=== PATIENT | female | born 1935 | race Caucasian/White ===

== ENCOUNTER → 2017-10-03 | Outpatient (CLI) | payer MEDICARE ==
[~2017-10-03] MED LIST: AEC81 PO; BIMA2.5D4 OD; CHOL200074 PO; FISH1CAP49 PO; FURO40TA5 PO; GARL1CAP7 PO; GLIM4TAB3 PO; GLUC-172 PO; INSU3INS3 SQ; LEVO88TA7 PO; LOSA50TA37 PO; METO-391 PO; NIAC500C3 PO; OMEP20CA10 PO; POTA10CA44 PO; RED600TA PO; TIMO5DRO35 OD; WARF2.5T85 PO
== END | disposition home or self-care (01) ==
LOC: SHCH 13:34
PROVIDERS: ATTEND Internal Medicine Cardiovascular Disease
DX: I34.0 Nonrheumatic mitral (valve) insufficiency (principal)
CPT/HCPCS: 93306

== ENCOUNTER → 2017-10-05 | Outpatient (CLI) | payer MEDICARE ==
[~2017-10-05] MED LIST changes: +REGADENOSON 0.4 MG/5 ML PF SYG IVP SCH
== END | disposition home or self-care (01) ==
LOC: SHCH 17:02
PROVIDERS: ATTEND Internal Medicine Cardiovascular Disease
DX: I25.10 Atherosclerotic heart disease of native coronary artery without angina pectoris (principal)
CPT/HCPCS: 78452; 93017; 96374; A9500 ×2; J2785

== ENCOUNTER → 2018-04-04 | Outpatient (CLI) | payer MEDICARE ==
[~2018-04-04] MED LIST changes: -REGADENOSON 0.4 MG/5 ML PF SYG IVP SCH
== END | disposition home or self-care (01) ==
LOC: RAH 12:42
PROVIDERS: ATTEND Family Medicine
DX: I73.9 Peripheral vascular disease, unspecified (principal)
CPT/HCPCS: 93922

== ENCOUNTER → 2018-08-06 | Outpatient (CLI) | payer MEDICARE ==
[~2018-08-06] MED LIST changes: +LOSA50TA25 PO; -LOSA50TA37 PO
[2018-08-06 09:42] LABS: EOSINOPHILS % (AUTO) 2.6 % (0.0-8.0); HEMATOCRIT 44.6 % (36-48); LYMPHOCYTES % (AUTO) 24.4 % (21.0-51.0); MEAN CORPUSCULAR HEMOGLOBIN 28.2 pg (27.0-33.0); MEAN CORPUSCULAR HGB CONC 32.3 g/dL (32.0-36.0); MEAN CORPUSCULAR VOLUME 87.2 fL (79-99); MONOCYTES % (AUTO) 10.2 % (3.0-13.0); NEUTROPHILS % (AUTO) 61.8 % (40.0-77.0); PLATELET COUNT (AUTO) 189 K/uL (130-400); RED BLOOD CELL COUNT(AUTO) 5.11 MIL/uL (4.00-5.50); RED CELL DISTRIBUTION WIDTH 15.1 % (11.0-15.5); WHITE BLOOD COUNT (AUTO) 7.3 K/uL (4.8-10.8)
[2018-08-06 09:48] LABS: CREATININE 1.5 mg/dL (0.5-1.5); POTASSIUM 5.8 mmol/L (3.5-5.1)
== END | disposition home or self-care (01) ==
LOC: LAB 08:38
PROVIDERS: ATTEND Urology
DX: N13.30 Unspecified hydronephrosis (principal)
CPT/HCPCS: 36415; 80048; 85025

== ENCOUNTER → 2019-04-21 | Outpatient (CLI) | payer MEDICARE ==
[~2019-04-21] MED LIST changes: -LOSA50TA25 PO; +LOSA50TA64 PO; +OMEP-50 PO; -OMEP20CA10 PO
== END | disposition home or self-care (01) ==
LOC: SHCH 11:15
PROVIDERS: ATTEND Internal Medicine Cardiovascular Disease
DX: I65.23 Occlusion and stenosis of bilateral carotid arteries (principal); I11.9 Hypertensive heart disease without heart failure; I34.0 Nonrheumatic mitral (valve) insufficiency; I25.810 Atherosclerosis of coronary artery bypass graft(s) without angina pectoris
CPT/HCPCS: 93306; 93880

== ENCOUNTER 2019-08-01 22:06 | Inpatient (IN) | payer MEDICARE ==
[~2019-08-01] VITALS: Ht 152.4 cm; Wt 78.5 kg
[~2019-08-01 22:06] MED LIST changes: -GLIM4TAB3 PO; +GLIM4TAB5 PO
[2019-08-01 23:40] LABS: BASOPHILS % (AUTO) 0.1 % (0.0-5.0); EOSINOPHILS % (AUTO) 0.1 % (0.0-8.0); HEMATOCRIT 43.1 % (36-48); LYMPHOCYTES % (AUTO) 1.5 % (21.0-51.0); MEAN CORPUSCULAR HEMOGLOBIN 29.1 pg (27.0-33.0); MEAN CORPUSCULAR HGB CONC 33.6 g/dL (32.0-36.0); MEAN CORPUSCULAR VOLUME 86.8 fL (79-99); MONOCYTES % (AUTO) 0.6 % (3.0-13.0); NEUTROPHILS % (AUTO) 97.7 % (40.0-77.0); PLATELET COUNT (AUTO) 164 K/uL (130-400); RED BLOOD CELL COUNT(AUTO) 4.97 MIL/uL (4.00-5.50); RED CELL DISTRIBUTION WIDTH 14.4 % (11.0-15.5); WHITE BLOOD COUNT (AUTO) 8.5 K/uL (4.8-10.8)
[2019-08-01] MEDS ORDERED: ONDANSETRON HCL 4 MG/2 ML VIAL ONE (23:48)
[2019-08-01 23:55] LABS: CREATININE 1.6 mg/dL (0.5-1.5); POTASSIUM 3.2 mmol/L (3.5-5.1)
[2019-08-01 23:59] LABS: ALBUMIN 3.4 g/dL (3.5-5.0); BILIRUBIN,TOTAL 2.2 mg/dL (0.2-1.0); INR 0.99 (0.85-1.15); PARTIAL THROMBOPLASTIN TIME 24.1 SEC (26.3-35.5); PROTHROMBIN TIME 10.4 SEC (9.6-11.6); TOTAL PROTEIN, SERUM 7.2 g/dL (6.0-8.3)
[2019-08-02 00:02] LABS: B-TYPE NATRIURETIC PEPTIDE 246 pg/mL (0-100)
[2019-08-02] MEDS ORDERED: ZOSYN 3.375GM+NS 50ML 50 ML IV ONE (01:29)
[2019-08-02] MEDS ORDERED: SODIUM CHLORIDE 0.9% 1000ML 1,000 ML IV SCH (01:37)
[2019-08-02] MEDS ORDERED: ACETAMINOPHEN 325 MG TAB PO PRN ×2 (01:45)
[2019-08-02] MEDS ORDERED: LIDOCAINE HCL-MPF 1% 2ML VIAL IV PRN (01:45)
[2019-08-02] MEDS ORDERED: ONDANSETRON HCL 4 MG/2 ML VIAL IV PRN (01:45)
[2019-08-02] MEDS ORDERED: LACTULOSE 20 GM/30 ML UDCUP PO PRN (01:45)
[2019-08-02] MEDS ORDERED: POTASSIUM CHLORIDE 10% ELIXIR 20 MEQ/15 ML UDCUP PO PRN (01:45)
[2019-08-02] MEDS ORDERED: MORPHINE SULFATE 2 MG/ML 1ML SYG IV PRN (01:45)
[2019-08-02] MEDS ORDERED: POTASSIUM CHLORIDE 10MEQ/100ML 100 ML IV PRN (01:45)
[2019-08-02 01:56] LABS: APPEARANCE,URINE Clear (CLEAR); BILIRUBIN,URINE Small (NEGATIVE); COLOR,URINE Dark Yellow (YELLOW); GLUCOSE, URINE (UA) Negative (NEGATIVE); KETONES,URINE Negative (NEGATIVE); LEUKOCYTE ESTERASE ,URINE Negative (NEGATIVE); NITRATE,URINE Negative (NEGATIVE); OCCULT BLOOD,URINE Negative (NEGATIVE); PROTEIN,URINE Negative (NEGATIVE)
[2019-08-02] MEDS ORDERED: SODIUM CHLORIDE 0.9% 1000ML 1,000 ML IV ONE (02:07)
[2019-08-02] MEDS ORDERED: POTASSIUM BICARB/CIT AC 25 MEQ TABLET.EFF ONE (02:07)
[2019-08-02 04:37] LABS: BASOPHILS % (AUTO) 0.1 % (0.0-5.0); EOSINOPHILS % (AUTO) 0.1 % (0.0-8.0); HEMATOCRIT 40.9 % (36-48); LYMPHOCYTES % (AUTO) 1.1 % (21.0-51.0); MEAN CORPUSCULAR HEMOGLOBIN 29.2 pg (27.0-33.0); MEAN CORPUSCULAR HGB CONC 33.4 g/dL (32.0-36.0); MEAN CORPUSCULAR VOLUME 87.5 fL (79-99); MONOCYTES % (AUTO) 4.7 % (3.0-13.0); NUCLEATED RED BLOOD CELLS 0.2 % (0.0-0.19); PLATELET COUNT (AUTO) 150 K/uL (130-400); RED BLOOD CELL COUNT(AUTO) 4.67 MIL/uL (4.00-5.50); RED CELL DISTRIBUTION WIDTH 14.7 % (11.0-15.5); WHITE BLOOD COUNT (AUTO) 14.8 K/uL (4.8-10.8)
[2019-08-02 07:50] VITALS: BP 116/64
[2019-08-02] MEDS: INSULIN HUMULIN R 100 UNIT/ML 3ML SQ SCH ×4 (08:00→21:00)
[2019-08-02] MEDS: ENOXAPARIN SODIUM 30 MG/0.3 ML SQ SCH (09:00)
[2019-08-02] MEDS ORDERED: LORA0.5P MC (09:41)
[2019-08-02] MEDS ORDERED: APIX5TAB PO (09:41)
[2019-08-02] MEDS ORDERED: BIOT5000 PO (09:41)
[2019-08-02] MEDS ORDERED: VITA1CAP PO (09:41)
[2019-08-02] MEDS: FAMOTIDINE/PF 20 MG/2 ML VIAL IV SCH (10:01)
[2019-08-02 12:00] VITALS: BP 107/67
[2019-08-02 16:00] VITALS: BP 147/67
[2019-08-02] MEDS ORDERED: VANCOMYCIN PROTOCOL PER PHARMACY IV SCH (17:00)
--- NOTE | 2019-08-02 17:27 | NUR ---
INITIAL: Met w pt this afternoon to discuss dcp. Pt mentions that she lives alone. Prior to admission she was independent w ambulation and ADls. She was driving herself where needed. Per pt she owns a walker if needed. Pt mentions that she feels safe and comfortable to return home at [place]. She mentions that she does not have any family living here in the [place] and her son lives in [place]. CM to continue to follow and wait for Md recommendations. Addendum: 08/03/19 at 1729 by BELLA SÁNCHEZ Amended: Links added.
[2019-08-02] MEDS: VANCOMYCIN 1GM+NS 250ML 250 ML IV SCH (17:40)
[2019-08-02 19:15] VITALS: BP 88/60
--- NOTE | 2019-08-02 20:50 | NUR ---
Re: Dr. Ignacio Pierre in, updated by Daniel AVENDANO of the case, seen, examined & discuss with pt plan of care. Pt did inform MD that she would like to have a cardiac clearance as she has problem with CHF & cardiac arrhythmias. Pt claimed her cloth bale header is Dr. Mills, she does not have a surgeon. Order obtain for cardiology & surgical consult with Dr. Cardoso which MD had spoken earlier as noted. Per Dr. Pierre as clarified as I made him aware that we might not be able to obtain cardiac clearance before his plan ERCP tomorrow at 1200noon, stated he will still proceed, cardiac clearance is more for surgical reason. MD made aware pt glucose was 44 as reported, stated can give pt clear liquid diet then NPO post MN & to asked hospitalist regarding current IV fluid rate as pt with CHF.
--- NOTE | 2019-08-02 20:51 | NUR ---
Re: BS 44 Reported by RN STARSShai Domínguez pt's glucose 44, pt is awake, noted a little drowsy, agreed to have orange juice & apple sauce as pt cleared by Dr. Pierre to have clear liquid diet. We will re check glucose in 30 minutes.
[2019-08-02] MEDS: ZOSYN 3.375GM+NS 50ML 50 ML IV SCH (21:03)
[2019-08-02] MEDS: POTASSIUM CHLORIDE 20 MEQ ERTAB PO PRN ×2 (21:06→22:43)
[2019-08-02] MEDS: SODIUM CHLORIDE 0.9% 1000ML 1,000 ML IV SCH (21:07)
[2019-08-02] MEDS ORDERED: DEXTROSE 50%-WATER 50 ML DISP.SYRIN IV ONE (21:22)
[2019-08-02] MEDS ORDERED: DEXTROSE 50%-WATER 50 ML DISP.SYRIN IV PRN (21:30)
[2019-08-02] MEDS ORDERED: GLUCAGON 1MG KIT 1 MG ML IM PRN (21:30)
--- NOTE | 2019-08-02 21:30 | NUR ---
Glucose re checked 59 Dextrose 50% 1/2 amp given as re_checked glucose reported 59, pt declined to take anything by mouth at this time, claimed feels full. We will continue to monitor Glucose.
--- NOTE | 2019-08-02 21:31 | NUR ---
Re concern for CHF Page & called back HOUSING QUALITY STANDARD INSPECTOR Neno made aware of Dr. Pierre's orders & concern of IV running rate 100cc/hr, order received to decrease rate to NS at 50cc/hr, done.
--- NOTE | 2019-08-02 21:50 | NUR ---
Latest glucose reading 123
[2019-08-02 23:44] LABS: ALBUMIN 2.4 g/dL (3.5-5.0); BILIRUBIN,TOTAL 4.5 mg/dL (0.2-1.0); CREATININE 2.3 mg/dL (0.5-1.5); POTASSIUM 3.7 mmol/L (3.5-5.1); TOTAL PROTEIN, SERUM 5.6 g/dL (6.0-8.3)
[2019-08-03] VITALS (22 sets, daily range): BP systolic 91–189; BP diastolic 43–85
[2019-08-03] MEDS ORDERED: SODIUM CHLORIDE 0.9% 500ML 500 ML IV ONE ×2 (00:06→00:15)
--- NOTE | 2019-08-03 00:06 | NUR ---
Re: Lactic Acid 4.2 Page & called back CHARM FILTER OPERATOR HELPER Neno, made aware of Lactic Acid 4.2, obtain order to give NS 500cc bolus then repeat Lactic level in 4 hours.
[2019-08-03] MEDS: POTASSIUM CHLORIDE 20 MEQ ERTAB PO PRN (00:39)
[2019-08-03 04:32] LABS: BASOPHILS % (AUTO) 0.2 % (0.0-5.0); HEMATOCRIT 34.8 % (36-48); LYMPHOCYTES % (AUTO) 3.6 % (21.0-51.0); MEAN CORPUSCULAR VOLUME 87.9 fL (79-99); MONOCYTES % (AUTO) 3.1 % (3.0-13.0); NEUTROPHILS % (AUTO) 93.1 % (40.0-77.0); PLATELET COUNT (AUTO) 115 K/uL (130-400); RED BLOOD CELL COUNT(AUTO) 3.96 MIL/uL (4.00-5.50); WHITE BLOOD COUNT (AUTO) 23.9 K/uL (4.8-10.8)
[2019-08-03 04:50] LABS: CREATININE 2.5 mg/dL (0.5-1.5)
[2019-08-03 05:11] LABS: POTASSIUM 6.2 mmol/L (3.5-5.1)
[2019-08-03] MEDS ORDERED: SODIUM POLYSTYRENE SULFONATE 15 GM/60 ML ML RC SCH (05:30)
[2019-08-03] MEDS ORDERED: SODIUM POLYSTYRENE SULFONATE 15 GM/60 ML ML ONE (05:38)
[2019-08-03] MEDS: INSULIN HUMULIN R 100 UNIT/ML 3ML SQ SCH ×4 (05:59→20:31)
--- NOTE | 2019-08-03 06:00 | NUR ---
Re: Lactic Acid 3.3, K+ 6.2, WBC 23.9 Page & called back SECURITY MANAGEMENT SPECIALIST Roberto & made aware of above lab results, order obtain for Kayexalate 30gm per RC, explained to pt & done able to retain for 45minutes using a Robertson catheter to do the retention enema, tolerated well.
[2019-08-03] MEDS: ZOSYN 3.375GM+NS 50ML 50 ML IV SCH ×2 (08:12→20:30)
[2019-08-03] MEDS: FAMOTIDINE/PF 20 MG/2 ML VIAL IV SCH (08:12)
[2019-08-03] MEDS: ENOXAPARIN SODIUM 30 MG/0.3 ML SQ SCH (08:16)
--- NOTE | 2019-08-03 09:12 | NUR ---
DR. LUKE RECEIVED PHONE CALL FROM DR. CHANNING LEHMAN REGARDING CARDIAC CONSULT. ADVISED DR. LEHMAN PURPOSE WAS FOR CARDIAC CLEARANCE FOR PENDING ERCP PROCEDURE SCHEDULED FOR NOON TODAY. REPORTED PATIENT WITH HISTORY OF AFIB. DR. LEHMAN ADVISED HE WAS NOT GOING TO HOLD UP PROCEDURE IF ALL PATIENT HAD WAS AFIB THEN ABRUPTLY HUNG UP PHONE. NO FURTHER INFORMATION TO FORWARD.
[2019-08-03] MEDS ORDERED: IOHEXOL-350 50ML VIAL IV ONE (11:44)
[2019-08-03] MEDS ORDERED: INDOMETHACIN 50 MG SUPP.RECT RC SCH (13:00)
[2019-08-03] MEDS ORDERED: PROPOFOL 10 MG/ML 20ML VIAL IV ONE (14:12)
[2019-08-03] MEDS ORDERED: FENTANYL CITRATE PF 50 MCG/1 ML 2ML VIAL ONE ×2 (14:12→15:01)
[2019-08-03] MEDS ORDERED: EPHEDRINE SULFATE 50 MG/ML AMPULE ONE (14:12)
[2019-08-03] MEDS ORDERED: ROCURONIUM 10MG/1ML SYR 10 MG/ML ML ONE (14:14)
[2019-08-03] MEDS ORDERED: NEOSTIGMINE 5MG/5ML SYR IV ONE (14:16)
[2019-08-03] MEDS ORDERED: GLYCOPYRROLATE 1 MG/5 ML SYRINGE ONE (14:16)
[2019-08-03 15:51] LABS: ABG BASE EXCESS -9.1 mmol/L (-2.0-3.0); ABG OXYGEN SATURATION 93.3 % (95.0-99.0); ABG PCO2 50 mmHg (32-45)
[2019-08-03] MEDS ORDERED: METOPROLOL TARTRATE 1 MG/ML 5ML VIAL IV ONE (15:52)
[2019-08-03 15:53] LABS: BASOPHILS % (AUTO) 0.1 % (0.0-5.0); EOSINOPHILS % (AUTO) 0.8 % (0.0-8.0); HEMATOCRIT 38.7 % (36-48); MEAN CORPUSCULAR HGB CONC 32.5 g/dL (32.0-36.0); MEAN CORPUSCULAR VOLUME 89.3 fL (79-99); MONOCYTES % (AUTO) 3.7 % (3.0-13.0); NEUTROPHILS % (AUTO) 85.4 % (40.0-77.0); PLATELET COUNT (AUTO) 132 K/uL (130-400); RED BLOOD CELL COUNT(AUTO) 4.34 MIL/uL (4.00-5.50); RED CELL DISTRIBUTION WIDTH 15.7 % (11.0-15.5); WHITE BLOOD COUNT (AUTO) 23.3 K/uL (4.8-10.8)
[2019-08-03 16:16] LABS: POTASSIUM 4.4 mmol/L (3.5-5.1)
[2019-08-03] MEDS ORDERED: SUGAMMADEX SODIUM 200 MG/2 ML VIAL IV ONE (16:23)
[2019-08-03 16:46] LABS: ABG BASE EXCESS -6.2 mmol/L (-2.0-3.0); ABG HCO3 19.4 mmol/L (21.0-28.0); ABG OXYGEN SATURATION 99.9 % (95.0-99.0); ABG PCO2 39 mmHg (32-45)
[2019-08-03 16:56] LABS: ALBUMIN 2.9 g/dL (3.5-5.0); BILIRUBIN,TOTAL 5.1 mg/dL (0.2-1.0); CREATININE 2.2 mg/dL (0.5-1.5); TOTAL PROTEIN, SERUM 6.8 g/dL (6.0-8.3)
[2019-08-03 17:05] LABS: TROPONIN I 1.81 ng/mL (0.00-0.06)
--- NOTE | 2019-08-03 17:46 | NUR ---
CALLED ADILIA PIRES TO REPORT TI ELEVATED AT 1.81. ORDERED TO CONSULT MD [facility] sPOKE WITH TI AT THIS TIME, INFORMED ABOUT ABNORMAL EKG RESULTS, ELEVATED TI LEVEL OF 1.81 WELL PATIENT MEDS AND MEDICAL HISTORY. NO NEW ORDERED [facility] WILL FOLLOW-UP IN AM. Addendum: 08/03/19 at 1748 by NIGEL DAVIS RN RN Amended: Links added.
[2019-08-03] MEDS: BIOTIN 5000 MCG PO SCH (20:36)
[2019-08-03] MEDS: BIMATOPROST OD SCH (20:36)
[2019-08-03] MEDS: METOPROLOL SUCCINATE 50 MG PO SCH (20:37)
[2019-08-03] MEDS: APIXABAN 5 MG TABLET PO SCH (20:38)
[2019-08-03] MEDS: SODIUM CHLORIDE 0.9% 1000ML 1,000 ML IV SCH (22:47)
[2019-08-03 23:10] LABS: TROPONIN I 1.62 ng/mL (0.00-0.06)
--- NOTE | 2019-08-03 23:51 | NUR ---
critical troponin paged Neno Mejia. He is aware and waiting for troponin result at 08/04/19 @ 04:00 am
[2019-08-04] VITALS (15 sets, daily range): BP systolic 106–159; BP diastolic 57–89
[2019-08-04] MEDS: VANCOMYCIN 1GM+NS 250ML 250 ML IV SCH (04:31)
[2019-08-04 05:04] LABS: BASOPHILS % (AUTO) 0.1 % (0.0-5.0); EOSINOPHILS % (AUTO) 1.6 % (0.0-8.0); HEMATOCRIT 33.8 % (36-48); LYMPHOCYTES % (AUTO) 6.9 % (21.0-51.0); MEAN CORPUSCULAR HEMOGLOBIN 28.8 pg (27.0-33.0); MEAN CORPUSCULAR HGB CONC 32.4 g/dL (32.0-36.0); MEAN CORPUSCULAR VOLUME 88.9 fL (79-99); MONOCYTES % (AUTO) 2.8 % (3.0-13.0); NEUTROPHILS % (AUTO) 88.6 % (40.0-77.0); PLATELET COUNT (AUTO) 103 K/uL (130-400); RED BLOOD CELL COUNT(AUTO) 3.81 MIL/uL (4.00-5.50); RED CELL DISTRIBUTION WIDTH 15.2 % (11.0-15.5)
[2019-08-04 05:40] LABS: CREATININE 2.1 mg/dL (0.5-1.5); POTASSIUM 4.3 mmol/L (3.5-5.1)
[2019-08-04 05:44] LABS: TROPONIN I 1.24 ng/mL (0.00-0.06)
[2019-08-04] MEDS: INSULIN HUMULIN R 100 UNIT/ML 3ML SQ SCH ×4 (06:15→20:59)
[2019-08-04] MEDS: LEVOTHYROXINE 88 MCG TABLET PO SCH (06:34)
[2019-08-04] MEDS: SODIUM CHLORIDE 0.9% 1000ML 1,000 ML IV SCH (08:39)
[2019-08-04] MEDS: ENOXAPARIN SODIUM 30 MG/0.3 ML SQ SCH (09:00)
[2019-08-04] MEDS: METOPROLOL SUCCINATE 50 MG PO SCH ×2 (09:00→20:59)
[2019-08-04] MEDS: APIXABAN 5 MG TABLET PO SCH ×2 (09:00→21:00)
[2019-08-04] MEDS: CHOLECALCIFEROL 2000 UNIT PO SCH (09:00)
[2019-08-04] MEDS: FAMOTIDINE/PF 20 MG/2 ML VIAL IV SCH (10:43)
[2019-08-04] MEDS: VITAMIN B COMPLEX 1 CAPSULE PO SCH (10:43)
[2019-08-04] MEDS: LOSARTAN 50 MG TABLET PO SCH (10:44)
[2019-08-04] MEDS: ZOSYN 3.375GM+NS 50ML 50 ML IV SCH ×2 (10:44→21:41)
[2019-08-04] MEDS: FUROSEMIDE 40 MG TABLET PO SCH (10:44)
--- NOTE | 2019-08-04 17:51 | NUR ---
COSENT For laparoscopic cholecystectomy possibly open, stated she would like to talk to doctor first.
[2019-08-04] MEDS: BIMATOPROST OD SCH (20:58)
[2019-08-04] MEDS: BIOTIN 5000 MCG PO SCH (20:59)
[2019-08-05 03:00] VITALS: BP 157/93
[2019-08-05] MEDS: SODIUM CHLORIDE 0.9% 1000ML 1,000 ML IV SCH (04:04)
[2019-08-05 05:02] LABS: BASOPHILS % (AUTO) 0.3 % (0.0-5.0); HEMATOCRIT 34.8 % (36-48); LYMPHOCYTES % (AUTO) 10.1 % (21.0-51.0); MEAN CORPUSCULAR HEMOGLOBIN 29.1 pg (27.0-33.0); MEAN CORPUSCULAR HGB CONC 33.2 g/dL (32.0-36.0); MEAN CORPUSCULAR VOLUME 87.6 fL (79-99); MONOCYTES % (AUTO) 5.3 % (3.0-13.0); NEUTROPHILS % (AUTO) 83.3 % (40.0-77.0); PLATELET COUNT (AUTO) 109 K/uL (130-400); RED BLOOD CELL COUNT(AUTO) 3.97 MIL/uL (4.00-5.50); RED CELL DISTRIBUTION WIDTH 14.6 % (11.0-15.5); WHITE BLOOD COUNT (AUTO) 12.1 K/uL (4.8-10.8)
[2019-08-05 05:20] LABS: ALBUMIN 2.3 g/dL (3.5-5.0); BILIRUBIN,TOTAL 3.6 mg/dL (0.2-1.0); CREATININE 1.5 mg/dL (0.5-1.5); POTASSIUM 4.1 mmol/L (3.5-5.1); TOTAL PROTEIN, SERUM 5.9 g/dL (6.0-8.3)
[2019-08-05] MEDS: LEVOTHYROXINE 88 MCG TABLET PO SCH ×2 (05:53→11:27)
[2019-08-05] MEDS: INSULIN HUMULIN R 100 UNIT/ML 3ML SQ SCH ×3 (05:53→20:42)
[2019-08-05 07:00] VITALS: BP 142/95
--- NOTE | 2019-08-05 07:50 | NUR ---
SURGERY Anesthesiologist Dr. Eddy is here. Patient expressed concerns over undergoing surgery due to she states she "had a reaction to anesthesia" and was told "not to have anesthesia". Dr. Eddy was made aware of patient's comments and concerns and at this point she expresses she is not sure about the surgery and would like to talk to Cardiology first. Surgeon Dr. Ghosh was texted to call nurse back to update him. Also, cardiology needs to see patient for clearance. Pending for cardiology to round and for Dr. Ghosh to call back. Patient stable. In no distress but somewhat anxious about possible surgery. Morning VS WNLs. She was reassured nursing is working to inform her doctors of her concerns. ALso, she requested to wait for her son to arrive from [place] and it is a [address] and he hasn't left yet. States she is willing to go home and come back for surgery at a later time if necessary once all clearance is done.
[2019-08-05] MEDS: CHOLECALCIFEROL 2000 UNIT PO SCH (09:00)
[2019-08-05] MEDS: ENOXAPARIN SODIUM 30 MG/0.3 ML SQ SCH (09:00)
[2019-08-05] MEDS: METOPROLOL SUCCINATE 50 MG PO SCH ×2 (09:00→20:46)
[2019-08-05] MEDS: APIXABAN 5 MG TABLET PO SCH (09:00)
--- NOTE | 2019-08-05 10:01 | NUR ---
FOLLOW UP Dr. Ghosh called back and was updated. Stated whatever the patient wants is OK and that he will come talk to patient. Also, Hugh, Physician's Pipe Insulator Helper came to see patient. Laura for todayif patient proceeds with surgery. If not, F/U with them in office in 2 weeks. Patient has requested to postpone surgery for 2 weeks. Will inform attending.
[2019-08-05] MEDS: FAMOTIDINE/PF 20 MG/2 ML VIAL IV SCH (11:25)
[2019-08-05] MEDS: ZOSYN 3.375GM+NS 50ML 50 ML IV SCH ×2 (11:26→23:28)
[2019-08-05] MEDS: FUROSEMIDE 40 MG TABLET PO SCH (11:27)
[2019-08-05] MEDS: LOSARTAN 50 MG TABLET PO SCH (11:27)
[2019-08-05] MEDS: VITAMIN B COMPLEX 1 CAPSULE PO SCH (11:31)
[2019-08-05 12:00] VITALS: BP 161/78
[2019-08-05] MEDS ORDERED: REGADENOSON 0.4 MG/5 ML PF SYG IVP SCH (12:30)
[2019-08-05 17:35] VITALS: BP 147/93
[2019-08-05 19:00] VITALS: BP 145/63
[2019-08-05] MEDS: BIOTIN 5000 MCG PO SCH (20:46)
[2019-08-05] MEDS: VANCOMYCIN 1GM+NS 250ML 250 ML IV SCH (20:46)
[2019-08-05] MEDS: BIMATOPROST OD SCH (20:46)
[2019-08-05 23:00] VITALS: BP 120/71
[2019-08-06] VITALS (26 sets, daily range): BP systolic 123–162; BP diastolic 50–80
[2019-08-06 05:37] LABS: BASOPHILS % (AUTO) 0.5 % (0.0-5.0); EOSINOPHILS % (AUTO) 1.1 % (0.0-8.0); HEMATOCRIT 37.8 % (36-48); LYMPHOCYTES % (AUTO) 15.3 % (21.0-51.0); MEAN CORPUSCULAR HEMOGLOBIN 28.6 pg (27.0-33.0); MEAN CORPUSCULAR HGB CONC 32.7 g/dL (32.0-36.0); MEAN CORPUSCULAR VOLUME 87.5 fL (79-99); MONOCYTES % (AUTO) 8.9 % (3.0-13.0); NEUTROPHILS % (AUTO) 74.2 % (40.0-77.0); NUCLEATED RED BLOOD CELLS 0.1 % (0.0-0.19); PLATELET COUNT (AUTO) 131 K/uL (130-400); RED BLOOD CELL COUNT(AUTO) 4.32 MIL/uL (4.00-5.50); RED CELL DISTRIBUTION WIDTH 14.8 % (11.0-15.5); WHITE BLOOD COUNT (AUTO) 11.8 K/uL (4.8-10.8)
[2019-08-06 05:55] LABS: ALBUMIN 2.5 g/dL (3.5-5.0); BILIRUBIN,TOTAL 2.7 mg/dL (0.2-1.0); CREATININE 1.3 mg/dL (0.5-1.5); POTASSIUM 3.4 mmol/L (3.5-5.1); TOTAL PROTEIN, SERUM 6.3 g/dL (6.0-8.3)
--- NOTE | 2019-08-06 06:30 | NUR ---
CARDIOLOGY. ANAIS MENJIVAR PA IN TO SEE PATIENT. REVIEWED ECHO AND RADAMES SCAN, ADVISED PT SHE IS CONSIDERED MODERATE RISK FOR SURGERY. PT VERBALIZED UNDERSTANDING. ADVISED TO NOT EXCESSIVELY HYDRATE PT WITH IV FLUIDS POST-OP DUE TO INCREASED RISK FOR DEVELOPING CHF.
[2019-08-06] MEDS: INSULIN HUMULIN R 100 UNIT/ML 3ML SQ SCH ×4 (06:31→21:23)
--- NOTE | 2019-08-06 07:44 | NUR ---
GENERAL SURGERY MD [place] MADE AWARE OF GLOBAL COMMODITY MANAGER MOD RISK ASSESSMENT, GAVE OKAY ORDER FOR PATIENT TO GO FOR SURGERY TODAY.
[2019-08-06] MEDS: FUROSEMIDE 40 MG TABLET PO SCH (09:00)
[2019-08-06] MEDS: VITAMIN B COMPLEX 1 CAPSULE PO SCH (09:00)
[2019-08-06] MEDS: ENOXAPARIN SODIUM 30 MG/0.3 ML SQ SCH (09:00)
[2019-08-06] MEDS: CHOLECALCIFEROL 2000 UNIT PO SCH (09:00)
[2019-08-06] MEDS: METOPROLOL SUCCINATE 50 MG PO SCH ×2 (09:00→21:00)
[2019-08-06] MEDS: ZOSYN 3.375GM+NS 50ML 50 ML IV SCH ×2 (09:01→21:16)
[2019-08-06] MEDS: FAMOTIDINE/PF 20 MG/2 ML VIAL IV SCH (09:01)
[2019-08-06] MEDS: LOSARTAN 50 MG TABLET PO SCH (09:12)
[2019-08-06] MEDS ORDERED: SODIUM CHLORIDE 0.9% 1000ML 1,000 ML IV ONE (11:58)
[2019-08-06] MEDS ORDERED: LIDOCAINE PF 2% 5ML ABBOJECT ONE (12:12)
[2019-08-06] MEDS ORDERED: FENTANYL CITRATE PF 50 MCG/1 ML 2ML VIAL ONE ×2 (12:13→13:33)
[2019-08-06] MEDS ORDERED: PROPOFOL 10 MG/ML 20ML VIAL IV ONE (12:13)
[2019-08-06] MEDS ORDERED: ROCURONIUM 10MG/1ML SYR 10 MG/ML ML ONE (12:13)
[2019-08-06] MEDS ORDERED: LIDOCAINE 1%-EPI 1:100,000 20 ML VIAL IJ ONE (12:14)
[2019-08-06] MEDS ORDERED: BUPIVACAINE/PF 0.25% 30ML VIAL IJ ONE (12:14)
[2019-08-06] MEDS ORDERED: EPHEDRINE SULFATE 50 MG/ML AMPULE ONE (13:03)
[2019-08-06] MEDS ORDERED: SUGAMMADEX SODIUM 200 MG/2 ML VIAL IV ONE (13:37)
[2019-08-06] MEDS ORDERED: GLYCOPYRROLATE 1 MG/5 ML SYRINGE ONE (13:41)
[2019-08-06] MEDS ORDERED: NEOSTIGMINE 5MG/5ML SYR IV ONE (13:41)
[2019-08-06] MEDS ORDERED: DEXAMETHASONE SOD PHOSPHATE 10MG/ML 1ML VIAL ONE (13:41)
[2019-08-06] MEDS ORDERED: ONDANSETRON HCL 4 MG/2 ML VIAL ONE (13:41)
[2019-08-06] MEDS ORDERED: MEPERIDINE-PF 25 MG/ML SYG ONE (14:35)
[2019-08-06] MEDS ORDERED: OXYCODONE/ACETAMIN 5/325MG TAB PO PRN (16:30)
[2019-08-06] MEDS: VANCOMYCIN 1GM+NS 250ML 250 ML IV SCH (17:36)
[2019-08-06] MEDS: BIOTIN 5000 MCG PO SCH (21:00)
[2019-08-06] MEDS: BIMATOPROST OD SCH (21:00)
[2019-08-07 03:40] VITALS: BP 136/76
[2019-08-07 05:14] LABS: BASOPHILS % (AUTO) 0.2 % (0.0-5.0); HEMATOCRIT 34.5 % (36-48); LYMPHOCYTES % (AUTO) 6.7 % (21.0-51.0); MEAN CORPUSCULAR HEMOGLOBIN 29.3 pg (27.0-33.0); MEAN CORPUSCULAR VOLUME 88.6 fL (79-99); MONOCYTES % (AUTO) 7.6 % (3.0-13.0); NEUTROPHILS % (AUTO) 85.5 % (40.0-77.0); PLATELET COUNT (AUTO) 126 K/uL (130-400); RED CELL DISTRIBUTION WIDTH 14.6 % (11.0-15.5); WHITE BLOOD COUNT (AUTO) 11.9 K/uL (4.8-10.8)
[2019-08-07 05:32] LABS: ALBUMIN 2.3 g/dL (3.5-5.0); BILIRUBIN,TOTAL 1.7 mg/dL (0.2-1.0); CREATININE 1.2 mg/dL (0.5-1.5); POTASSIUM 4.9 mmol/L (3.5-5.1); TOTAL PROTEIN, SERUM 6.1 g/dL (6.0-8.3)
[2019-08-07] MEDS: INSULIN HUMULIN R 100 UNIT/ML 3ML SQ SCH ×4 (05:40→21:05)
[2019-08-07] MEDS: LEVOTHYROXINE 88 MCG TABLET PO SCH (06:44)
[2019-08-07 07:33] VITALS: BP 143/72
[2019-08-07] MEDS: FAMOTIDINE/PF 20 MG/2 ML VIAL IV SCH (08:35)
[2019-08-07] MEDS: LOSARTAN 50 MG TABLET PO SCH (08:36)
[2019-08-07] MEDS: ZOSYN 3.375GM+NS 50ML 50 ML IV SCH ×2 (08:36→21:14)
[2019-08-07] MEDS: VITAMIN B COMPLEX 1 CAPSULE PO SCH (08:36)
[2019-08-07] MEDS: FUROSEMIDE 40 MG TABLET PO SCH (08:41)
[2019-08-07] MEDS: METOPROLOL SUCCINATE 50 MG PO SCH ×2 (08:41→21:15)
[2019-08-07] MEDS: ENOXAPARIN SODIUM 30 MG/0.3 ML SQ SCH (08:43)
[2019-08-07] MEDS: CHOLECALCIFEROL 2000 UNIT PO SCH (09:00)
[2019-08-07 11:27] VITALS: BP 145/84
[2019-08-07 15:50] VITALS: BP 149/74
--- NOTE | 2019-08-07 15:56 | NUR ---
CALLED TO [facility] REGARDING CLEARANCE FOR DC IN HIS STANDPOINT. PER MD OK TO DC HOME TODAY OR TOMORROW ,IF PATIENT FEELS STRONG TO GO HOME ,ADVANCE DIET AND F/U IN 1 WEEK. CALLED MD BACK REGARDING DR CARRILLO ASKING WHEN ITS OK TO RESTART ELIQUIS. ALSO MESSAGED HIM PATIENT HAD A SMALL BLEED ON INCISION AREA ,AND PLACED ANOTHER DRY DRESSING . PENDING CALL BACK
--- NOTE | 2019-08-07 16:44 | NUR ---
RDSCREEN - LOS X 5 Pt admitted for cholelithiasis. Pt s/p Lap monalisa. Pt with full liquid diet at time of visit. Diet advanced to Heart healthy, Low fat diet order. Pt reports no GI distress at this time. Fair PO intake (50%). RD to continue to monitor. Pt LBM 08/06/19. Pt monitored labs: BUN 21, GFR 46, Glu 161, Ca 8.1, T. bili 1.7, AST 53, ALT 118, Alb 2.3. RD to continue to monitor. Please notify RD as additional nutrition concerns arise. Thank you. Addendum: 08/07/19 at [address] Amended: Links added.
[2019-08-07] MEDS: VANCOMYCIN 1GM+NS 250ML 250 ML IV SCH (17:46)
[2019-08-07 19:31] VITALS: BP 132/59
[2019-08-07] MEDS: BIMATOPROST OD SCH (21:00)
[2019-08-07] MEDS: BIOTIN 5000 MCG PO SCH (21:00)
[2019-08-07 23:13] VITALS: BP 152/61
[2019-08-08 04:04] VITALS: BP 137/80
[2019-08-08] MEDS: INSULIN HUMULIN R 100 UNIT/ML 3ML SQ SCH ×3 (05:47→16:30)
[2019-08-08] MEDS: LEVOTHYROXINE 88 MCG TABLET PO SCH (06:16)
[2019-08-08 08:00] VITALS: BP 140/98
[2019-08-08] MEDS: CHOLECALCIFEROL 2000 UNIT PO SCH (09:00)
[2019-08-08] MEDS ORDERED: APIXABAN 5 MG TABLET PO SCH (09:00)
[2019-08-08] MEDS: METOPROLOL SUCCINATE 50 MG PO SCH (09:00)
[2019-08-08] MEDS: FAMOTIDINE/PF 20 MG/2 ML VIAL IV SCH (09:07)
[2019-08-08] MEDS: ZOSYN 3.375GM+NS 50ML 50 ML IV SCH (09:07)
[2019-08-08] MEDS: VITAMIN B COMPLEX 1 CAPSULE PO SCH (09:08)
[2019-08-08] MEDS: FUROSEMIDE 40 MG TABLET PO SCH (09:08)
[2019-08-08] MEDS: LOSARTAN 50 MG TABLET PO SCH (09:08)
[2019-08-08] MEDS ORDERED: POLYETHYLENE GLYCOL 3350 17 GM POWD.PACK PO SCH (11:00)
[2019-08-08] MEDS ORDERED: DOCUSATE SODIUM 100 MG CAP PO SCH ×2 (11:00→21:00)
[2019-08-08 12:00] VITALS: BP 145/70
[2019-08-08 16:00] VITALS: BP 125/75
--- NOTE | 2019-08-08 16:00 | NUR ---
PATIENT GIVEN DISCHARGE INSTRUCTIONS AND EDUCATION ON FOLLOW UP APPOINTMENTS AND NEW PRESCRIBED ANTIBIOTICS. PATIENT VERBALIZED UNDERSTANDING OF ALL EDUCATION GIVEN VIA TEACH BACK. NO CONCERNS VOICED. IV DISCONTINUED, CATHETER INTACT. PATIENT LEFT VIA WHEELCHAIR, PCP AT SIDE. NO DISTRESS NOTED UPON DISCHARGE. ALL BELONGINGS TAKEN WITH.
== END 2019-08-08 16:50 | disposition home or self-care (01) | DRG 853 ==
LOC: EDH 22:06 → OBSVTOIN 08-02 01:37 → EDHIP 08-02 01:37 → 3CH 08-02 07:51
PROVIDERS: ADMIT Hospitalist; ATTEND Hospitalist
PROC: 0FC98ZZ Extirpation of Matter from Common Bile Duct, Via Natural or Artificial Opening Endoscopic (ICD-10-PCS; 2019-08-03)
PROC: BF111ZZ Fluoroscopy of Biliary and Pancreatic Ducts using Low Osmolar Contrast (ICD-10-PCS; 2019-08-03)
PROC: 5A09357 Assistance with Respiratory Ventilation, Less than 24 Consecutive Hours, Continuous Positive Airway Pressure (ICD-10-PCS; 2019-08-03)
PROC: 0FT44ZZ Resection of Gallbladder, Percutaneous Endoscopic Approach (ICD-10-PCS; principal; 2019-08-06 13:06)
PROC: 0WQF4ZZ Repair Abdominal Wall, Percutaneous Endoscopic Approach (ICD-10-PCS; 2019-08-06 13:06)
DX: A41.50 Gram-negative sepsis, unspecified (principal); I50.43 Acute on chronic combined systolic (congestive) and diastolic (congestive) heart failure; K80.63 Calculus of gallbladder and bile duct with acute cholecystitis with obstruction; I13.0 Hypertensive heart and chronic kidney disease with heart failure and stage 1 through stage 4 chronic kidney disease, or unspecified chronic kidney disease; E44.0 Moderate protein-calorie malnutrition; N17.9 Acute kidney failure, unspecified; E87.6 Hypokalemia; E03.9 Hypothyroidism, unspecified; E11.21 Type 2 diabetes mellitus with diabetic nephropathy; E11.22 Type 2 diabetes mellitus with diabetic chronic kidney disease; E11.40 Type 2 diabetes mellitus with diabetic neuropathy, unspecified; E11.51 Type 2 diabetes mellitus with diabetic peripheral angiopathy without gangrene; E66.01 Morbid (severe) obesity due to excess calories; E78.5 Hyperlipidemia, unspecified; E87.5 Hyperkalemia; I25.10 Atherosclerotic heart disease of native coronary artery without angina pectoris; I25.5 Ischemic cardiomyopathy; I48.0 Paroxysmal atrial fibrillation; K42.9 Umbilical hernia without obstruction or gangrene; K59.00 Constipation, unspecified; N18.9 Chronic kidney disease, unspecified; N26.1 Atrophy of kidney (terminal); I25.2 Old myocardial infarction; Z68.33 Body mass index [BMI] 33.0-33.9, adult; Z82.0 Family history of epilepsy and other diseases of the nervous system; Z82.3 Family history of stroke; Z82.49 Family history of ischemic heart disease and other diseases of the circulatory system; Z82.5 Family history of asthma and other chronic lower respiratory diseases; Z83.3 Family history of diabetes mellitus; Z95.1 Presence of aortocoronary bypass graft
CPT/HCPCS: 36415; 36600; 43262; 43264; 71045; 74176; 74181; 74330; 76705; 78452; 80048; 80053; 80202; 81003; 82435; 82550; 82803; 82947; 82948; 83605; 83690; 83874; 83880; 84132; 84145; 84295; 84484; 85018; 85025; 85610; 85730; 87040; 88302; 88304; 93005; 93017; 93306; 94660; 96374; 97039; A9500; C1769; C1773; G0378; G9654; J1100; J1650; J1815; J2001; J2175; J2405; J2543; J2704; J2710; J2785; J3010; J3370; J3490; J7030; J7040; J7070; Q9967

== ENCOUNTER → 2019-11-18 | Outpatient (CLI) | payer MEDICARE ==
[~2019-11-18] MED LIST changes: -AEC81 PO; +APIX5TAB PO; +BIOT5000 PO; -FISH1CAP49 PO; -GARL1CAP7 PO; +GLIM4TAB36 PO; -GLIM4TAB5 PO; -GLUC-172 PO; +LORA0.5P MC; -NIAC500C3 PO; -OMEP-50 PO; +OMEP20CA12 PO; -RED600TA PO; +VITA1CAP PO; -WARF2.5T85 PO
== END | disposition home or self-care (01) ==
LOC: SHCH 10:52
PROVIDERS: ATTEND Internal Medicine Cardiovascular Disease
DX: I08.2 Rheumatic disorders of both aortic and tricuspid valves (principal)
CPT/HCPCS: 93306; 93356

== ENCOUNTER 2019-12-15 05:45 | Observation (INO) | payer MEDICARE ==
[2019-12-11 09:22] VITALS: BP 150/70
[2019-12-11 09:36] LABS: BASOPHILS % (AUTO) 0.5 % (0.0-5.0); EOSINOPHILS % (AUTO) 2.3 % (0.0-8.0); LYMPHOCYTES % (AUTO) 25.1 % (21.0-51.0); MEAN CORPUSCULAR HEMOGLOBIN 25.9 pg (27.0-33.0); MEAN CORPUSCULAR HGB CONC 30.2 g/dL (32.0-36.0); MEAN CORPUSCULAR VOLUME 85.7 fL (79-99); MONOCYTES % (AUTO) 9.1 % (3.0-13.0); NEUTROPHILS % (AUTO) 62.9 % (40.0-77.0); PLATELET COUNT (AUTO) 265 K/uL (130-400); RED BLOOD CELL COUNT(AUTO) 5.25 MIL/uL (4.00-5.50); RED CELL DISTRIBUTION WIDTH 17.2 % (11.0-15.5); WHITE BLOOD COUNT (AUTO) 7.9 K/uL (4.8-10.8)
[2019-12-11 09:45] LABS: APPEARANCE,URINE Clear (CLEAR); BILIRUBIN,URINE Negative (NEGATIVE); COLOR,URINE Yellow (YELLOW); GLUCOSE, URINE (UA) Negative (NEGATIVE); KETONES,URINE Negative (NEGATIVE); LEUKOCYTE ESTERASE ,URINE Negative (NEGATIVE); NITRATE,URINE Negative (NEGATIVE); OCCULT BLOOD,URINE Negative (NEGATIVE); PROTEIN,URINE Negative (NEGATIVE); UROBILINOGEN,URINE 0.2 mg/dL (0.2-1.0)
[2019-12-11 09:45] LABS: INR 1.03 (0.85-1.15); PARTIAL THROMBOPLASTIN TIME 31.1 SEC (26.3-35.5); PROTHROMBIN TIME 10.8 SEC (9.6-11.6)
[2019-12-11 09:47] LABS: CREATININE 1.2 mg/dL (0.5-1.5); POTASSIUM 4.7 mmol/L (3.5-5.1)
[~2019-12-15] VITALS: Ht 154.9 cm; Wt 72.0 kg
[2019-12-15] VITALS (15 sets, daily range): BP systolic 84–154; BP diastolic 27–60
[~2019-12-15 05:45] MED LIST changes: +COQ10 PO; +CYAN50008 PO; +INSLAN SQ; -INSU3INS3 SQ; +MULT-1296 PO; -OMEP20CA12 PO; +PANT40TA54 PO; -POTA10CA44 PO; +POTA10TA18 PO; -VITA1CAP PO
[2019-12-15] MEDS ORDERED: SODIUM CHLORIDE 0.9% 1000ML 1,000 ML IV ONE (06:09)
--- NOTE | 2019-12-15 06:20 | NUR ---
pre procedure pt arrived ambulatory with friend in no distress. pt made comfortable in be. bed in lowest position, call light within reach and pt instructed to call for assistance. pt connected to property assessment monitor.
--- NOTE | 2019-12-15 10:15 | NUR ---
malthouse laborer pt to malthouse laborer via bed in no distress
[2019-12-15] MEDS ORDERED: IOHEXOL 350 MG/ML 100ML INFUS..BTL IV ONE (10:18)
[2019-12-15] MEDS ORDERED: FENTANYL CITRATE PF 50 MCG/1 ML 2ML VIAL ONE (10:18)
[2019-12-15] MEDS ORDERED: IOHEXOL-350 50ML VIAL IV ONE ×2 (10:18→11:44)
[2019-12-15] MEDS ORDERED: NITROGLYCERIN 2 MG/VIAL VIAL IV ONE (10:18)
[2019-12-15] MEDS ORDERED: MIDAZOLAM HCL 1 MG/ML 2ML VIAL ONE (10:18)
[2019-12-15] MEDS ORDERED: HEPARIN SODIUM 1000UNIT/ML 10ML VIAL ONE ×2 (10:18→11:10)
[2019-12-15] MEDS ORDERED: LIDOCAINE HCL 2% 20ML ONE (10:19)
[2019-12-15] MEDS ORDERED: CLOPIDOGREL BISULFATE 300 MG TAB ONE (11:09)
[2019-12-15] MEDS ORDERED: ASPIRIN 325MG EC TAB 325 MG TABLET.DR PO ONE (11:09)
[2019-12-15] MEDS ORDERED: HYDRALAZINE HCL 20 MG/ML VIAL ONE (11:56)
[2019-12-15] MEDS ORDERED: GLUCAGON 1MG KIT 1 MG ML IM PRN ×2 (12:00→18:45)
[2019-12-15] MEDS ORDERED: DEXTROSE 50%-WATER 50 ML DISP.SYRIN IV PRN ×2 (12:00→18:45)
[2019-12-15] MEDS ORDERED: DEXTROSE 50%-WATER 50 ML DISP.SYRIN IV ONE (12:25)
--- NOTE | 2019-12-15 12:40 | NUR ---
POST RECEIVED PT BACK FROM DEPUTY DIRECTOR OF NURSING , S/P [facility] WITH CORONARY STENTS X 2 PLACEMENT. , PT AWAKE AND ALERT, NO DISTRESS NOTED. PT ARRIVED WITH BP 97/40 , RIGHT GROIN WITH PERCLOSE CLOSURE DEVICE. NO HEMATOMA NO BLEEDING. PT/ FAMILY INSTRUCTED TO KEEP RIGHT LEG STRAIGHT , TO KEEP BEDREST FOR 3 HRS. PLAN OF CARE DISCUSS WITH PATIENT / FAMILY FRIEND SHAYNE. WILL CONTINUE TO MONITOR
--- NOTE | 2019-12-15 13:10 | NUR ---
report received report from paul gonzalez rn. pt hypotensive, pt asymptomatic in supine position. new orders given by dr newman for bolus. will continue to monitor pt.
--- NOTE | 2019-12-15 13:14 | NUR ---
report called dr newman and also paged. will wait for call back.
--- NOTE | 2019-12-15 13:44 | NUR ---
follow up dr newman in to re eval pt. manual b/p to rt 88/44 and left withautomatic 137/57. new orders received for 250ml bolus and art md in one hour. pt asymptomatic. will continue to monitor
--- NOTE | 2019-12-15 14:15 | NUR ---
report report for continuation of care given to vamsi gale rn.
[2019-12-15] MEDS ORDERED: ACETAMINOPHEN 325 MG TAB PO PRN (17:15)
[2019-12-15] MEDS ORDERED: ONDANSETRON HCL 4 MG/2 ML VIAL IVP PRN (17:15)
[2019-12-15] MEDS ORDERED: HYDRALAZINE HCL 20 MG/ML VIAL IV PRN (17:15)
--- NOTE | 2019-12-15 18:55 | NUR ---
RECIEVED PT FROM OUTPT. REVIEW CARE, TO HER ROOM, AND ASSESS HER RT GROIN SM PRESSURE DRSG IN PLACE WITH NO BLEEDING OR HEMATOMA NOTE.D WARM LEGS UPPER AND LOWER GOOD PRESSES FOR REFILLS. TO TOES , DENIES ANY CHEST PAIN , CALL LIGHT IN REACH AND REPORT GIVEN TO THE ONCOMING NURSE .
[2019-12-15] MEDS ORDERED: INSULIN GLARGINE 100 UNITS/ML 10 ML VIAL SQ SCH (21:00)
[2019-12-15] MEDS ORDERED: BIOTIN 5000 MCG PO SCH (21:00)
[2019-12-15] MEDS ORDERED: BIMATOPROST OD SCH (21:00)
[2019-12-15] MEDS: INSULIN HUMULIN R 100 UNIT/ML 3ML SQ SCH (21:00)
[2019-12-15] MEDS ORDERED: POTASSIUM CHLORIDE 10 MEQ/TAB.SA PO SCH (21:00)
[2019-12-15] MEDS: APIXABAN 5 MG TABLET PO SCH (22:20)
[2019-12-15] MEDS: METOPROLOL SUCCINATE 50 MG TAB.SR.24H PO SCH (22:20)
[2019-12-16 03:55] VITALS: BP 130/55
[2019-12-16 04:40] LABS: HEMATOCRIT 37.9 % (36-48); MEAN CORPUSCULAR HEMOGLOBIN 26.2 pg (27.0-33.0); MEAN CORPUSCULAR HGB CONC 31.1 g/dL (32.0-36.0); MEAN CORPUSCULAR VOLUME 84.2 fL (79-99); PLATELET COUNT (AUTO) 217 K/uL (130-400); RED CELL DISTRIBUTION WIDTH 17.4 % (11.0-15.5); WHITE BLOOD COUNT (AUTO) 9.8 K/uL (4.8-10.8)
[2019-12-16] MEDS ORDERED: SODIUM CHLORIDE 0.9% 500ML 500 ML IV SCH (05:00)
[2019-12-16 05:04] LABS: CREATININE 1.5 mg/dL (0.5-1.5); POTASSIUM 4.5 mmol/L (3.5-5.1)
[2019-12-16] MEDS: INSULIN HUMULIN R 100 UNIT/ML 3ML SQ SCH (07:06)
[2019-12-16 07:30] VITALS: BP 139/52
[2019-12-16] MEDS ORDERED: LEVOTHYROXINE 88 MCG TABLET PO SCH (07:30)
[2019-12-16] MEDS ORDERED: GLIMEPIRIDE 2 MG TABLET PO SCH (08:00)
--- NOTE | 2019-12-16 08:00 | NUR ---
PT AAO X 3 REVIEW PLAN OF CARE FOR TODAY . PLAN DISCHARGE HOME, TODAY . DENIES ANY CHEST PAIN, ASSESS HER RT GROIN SM DRSG DRY AND CLEAN , NOTED NO HEMATOMA SOFT TOUCH ,TO SITE, WITH WARM LEGS. UPPER AND LOWER, , WITH GOOD PULSES TO HER FEET , GOOD CAPILLARIES REFILLS. CALL LIGHT IN REACH,,
[2019-12-16] MEDS: APIXABAN 5 MG TABLET PO SCH (08:46)
[2019-12-16] MEDS: METOPROLOL SUCCINATE 50 MG TAB.SR.24H PO SCH (08:47)
[2019-12-16] MEDS ORDERED: ASPIRIN 81MG TAB.CHEW PO SCH (09:00)
[2019-12-16] MEDS ORDERED: FUROSEMIDE 40 MG TABLET PO SCH (09:00)
[2019-12-16] MEDS ORDERED: PANTOPRAZOLE SODIUM 40 MG TABLET.DR PO SCH (09:00)
[2019-12-16] MEDS ORDERED: CLOPIDOGREL BISULFATE 75 MG TAB PO SCH (09:00)
[2019-12-16] MEDS ORDERED: CHOLECALCIFEROL 2000 UNIT PO SCH (09:00)
[2019-12-16] MEDS ORDERED: LOSARTAN 50 MG TABLET PO SCH (09:00)
[2019-12-16] MEDS ORDERED: CYANOCOBALAMIN (VITAMIN B-12) 1,000 MCG TABLET PO SCH (09:00)
[2019-12-16] MEDS ORDERED: MULTIVITAMINS/MINERALS/IRO TAB PO SCH (09:00)
[2019-12-16] MEDS ORDERED: TIMOLOL OD SCH (09:00)
[2019-12-16] MEDS ORDERED: CLOP75TA14 PO (09:41)
[2019-12-16 11:00] VITALS: BP 150/81
--- NOTE | 2019-12-16 12:10 | NUR ---
DISCHARGE SUMMARY WAS DONE PER DISCHARGE NURSE MEY. Jeffry COSTELLO TO HER LT WRIST PER REPORT WAS TAKEN OFF . . WITH NO COMPLICATION. OR BLEEDING NOTED TO HER RT GROIN ,
--- NOTE | 2019-12-16 16:21 | NUR ---
1210 I was unable to give patient VAUGHN Letter, prior to discharge.
== END 2019-12-16 12:10 | disposition home or self-care (01) ==
LOC: DAH 05:45 → 4DH 05:46
PROVIDERS: ADMIT Internal Medicine; ATTEND Internal Medicine
DX: I25.10 Atherosclerotic heart disease of native coronary artery without angina pectoris (principal); I48.0 Paroxysmal atrial fibrillation; I10 Essential (primary) hypertension; E11.9 Type 2 diabetes mellitus without complications; E78.5 Hyperlipidemia, unspecified; Z79.01 Long term (current) use of anticoagulants; Z90.710 Acquired absence of both cervix and uterus; Z95.1 Presence of aortocoronary bypass graft; Z98.61 Coronary angioplasty status; Z79.899 Other long term (current) drug therapy
CPT/HCPCS: 36415 ×2; 71045; 80048 ×2; 80061; 81003; 82948 ×7; 85025; 85027; 85610; 85730; 93005; 93459; A4215; A4216; A4221; A4222; A4223 ×3; A4606; A4663; C1725; C1760; C1769; C1874 ×2; C1887; C1894 ×2; C9600; G0378 ×19; J0360; J1644 ×2; J2250; J3010; J3490 ×2; J7030; J7070; Q9965 ×2; Q9967 ×3; 99156; 99157

== ENCOUNTER → 2020-03-24 | Outpatient (CLI) | payer MEDICARE | END | disposition home or self-care (01) | LOC: SHCH 09:37 | PROVIDERS: ATTEND Internal Medicine Cardiovascular Disease | DX: I25.10 Atherosclerotic heart disease of native coronary artery without angina pectoris (principal) ==

== ENCOUNTER 2021-03-17 06:55 | Emergency (ER) | payer MEDICARE ==
[~2021-03-17] VITALS: Ht 152.4 cm; Wt 73.9 kg
[~2021-03-17 06:55] MED LIST changes: +CLOP75TA14 PO; -CYAN50008 PO; +CYAN50009 PO
[2021-03-17 07:05] VITALS: BP_SYST 136; BP_SYST 149; BP_DIAS 49; BP_DIAS 86
[2021-03-17 07:47] VITALS: BP 149/49
[2021-03-17 08:08] LABS: BASOPHILS % (AUTO) 0.3 % (0.0-5.0); EOSINOPHILS % (AUTO) 0.1 % (0.0-8.0); HEMATOCRIT 41.3 % (36-48); LYMPHOCYTES % (AUTO) 6.7 % (21.0-51.0); MEAN CORPUSCULAR HEMOGLOBIN 27.1 pg (27.0-33.0); MEAN CORPUSCULAR HGB CONC 31.5 g/dL (32.0-36.0); MEAN CORPUSCULAR VOLUME 86.2 fL (79-99); MONOCYTES % (AUTO) 10.4 % (3.0-13.0); NEUTROPHILS % (AUTO) 82.1 % (40.0-77.0); PLATELET COUNT (AUTO) 226 K/uL (130-400); RED BLOOD CELL COUNT(AUTO) 4.79 MIL/uL (4.00-5.50); RED CELL DISTRIBUTION WIDTH 14.1 % (11.0-15.5); WHITE BLOOD COUNT (AUTO) 14.7 K/uL (4.8-10.8)
[2021-03-17 08:24] LABS: ALBUMIN 3.3 g/dL (3.5-5.0); BILIRUBIN,TOTAL 1.1 mg/dL (0.2-1.0); CREATININE 1.2 mg/dL (0.5-1.5); POTASSIUM 4.1 mmol/L (3.5-5.1)
[2021-03-17] MEDS ORDERED: SOLU-MEDROL 40MG/ML 1ML ONE (09:44)
[2021-03-17] MEDS ORDERED: SOLU-MEDROL 125MG/2ML VIAL IVP SCH (09:45)
[2021-03-17] MEDS ORDERED: METH4TAB3 PO (10:09)
[2021-03-17 11:04] VITALS: BP 142/69
== END 2021-03-17 11:04 | disposition home or self-care (01) ==
LOC: EDH 06:55
DX: M17.11 Unilateral primary osteoarthritis, right knee (principal); I10 Essential (primary) hypertension; E78.5 Hyperlipidemia, unspecified; E66.9 Obesity, unspecified; Z79.4 Long term (current) use of insulin; Z79.899 Other long term (current) drug therapy
CPT/HCPCS: 36415; 73562; 80053; 85025; 96374; 99284; J2920

== ENCOUNTER → 2021-04-06 | Outpatient (CLI) | payer MEDICARE ==
[~2021-04-06] MED LIST changes: +0.9%NACL 1000ML 1,000 ML IV SCH; +METH4TAB3 PO
[2021-04-06 10:53] LABS: BASOPHILS % (AUTO) 0.3 % (0.0-5.0); EOSINOPHILS % (AUTO) 1.7 % (0.0-8.0); HEMATOCRIT 41.3 % (36-48); LYMPHOCYTES % (AUTO) 15.7 % (21.0-51.0); MEAN CORPUSCULAR HEMOGLOBIN 26.5 pg (27.0-33.0); MEAN CORPUSCULAR HGB CONC 30.5 g/dL (32.0-36.0); MEAN CORPUSCULAR VOLUME 86.8 fL (79-99); PLATELET COUNT (AUTO) 295 K/uL (130-400); RED BLOOD CELL COUNT(AUTO) 4.76 MIL/uL (4.00-5.50); RED CELL DISTRIBUTION WIDTH 14.4 % (11.0-15.5)
[2021-04-06 11:01] LABS: CREATININE 1.3 mg/dL (0.5-1.5); POTASSIUM 4.8 mmol/L (3.5-5.1)
[2021-04-06 11:03] LABS: PROTHROMBIN TIME 10.9 SEC (9.6-11.6)
== END | disposition home or self-care (01) ==
LOC: DAH 10:00 → EDSTATUS 04-08 08:00
PROVIDERS: ATTEND Internal Medicine Cardiovascular Disease
DX: Z01.810 Encounter for preprocedural cardiovascular examination (principal); I25.5 Ischemic cardiomyopathy; I48.0 Paroxysmal atrial fibrillation; Z79.01 Long term (current) use of anticoagulants
CPT/HCPCS: 36415; 80048; 85025; 85610; 85730; 93005

== ENCOUNTER 2021-05-20 05:39 | Day surgery (SDC) | payer MEDICARE ==
[2021-05-17 14:00] LABS: BASOPHILS % (AUTO) 0.5 % (0.0-5.0); EOSINOPHILS % (AUTO) 2.5 % (0.0-8.0); HEMATOCRIT 41.2 % (36-48); LYMPHOCYTES % (AUTO) 20.9 % (21.0-51.0); MEAN CORPUSCULAR HEMOGLOBIN 26.9 pg (27.0-33.0); MEAN CORPUSCULAR HGB CONC 30.3 g/dL (32.0-36.0); MEAN CORPUSCULAR VOLUME 88.8 fL (79-99); MONOCYTES % (AUTO) 9.5 % (3.0-13.0); NEUTROPHILS % (AUTO) 66.3 % (40.0-77.0); PLATELET COUNT (AUTO) 229 K/uL (130-400); RED BLOOD CELL COUNT(AUTO) 4.64 MIL/uL (4.00-5.50); WHITE BLOOD COUNT (AUTO) 8.7 K/uL (4.8-10.8)
[2021-05-17 14:16] LABS: CREATININE 1.2 mg/dL (0.5-1.5); POTASSIUM 4.7 mmol/L (3.5-5.1)
[2021-05-17 14:19] LABS: INR 0.95 (0.85-1.15); PROTHROMBIN TIME 10.4 SEC (9.6-11.6)
[2021-05-17 14:20] LABS: PARTIAL THROMBOPLASTIN TIME 25.6 SEC (26.3-35.5)
[2021-05-19 14:31] VITALS: BP 140/68
[~2021-05-20] VITALS: Ht 154.9 cm; Wt 71.8 kg
[2021-05-20] VITALS (9 sets, daily range): BP systolic 119–167; BP diastolic 53–68
[~2021-05-20 05:39] MED LIST changes: -0.9%NACL 1000ML 1,000 ML IV SCH; -BIMA2.5D4 OD; -BIOT5000 PO; -CHOL200074 PO; -COQ10 PO; -CYAN50009 PO; +EVOL140S2 SQ; -INSLAN SQ; +INSU3INS3 SQ; -LORA0.5P MC; -METH4TAB3 PO; -METO-391 PO; +METO50TA18 PO; -MULT-1296 PO; -TIMO5DRO35 OD
[2021-05-20] MEDS ORDERED: 0.9% NACL 500ML IV.SOLN 500 ML IV SCH (06:00)
[2021-05-20] MEDS ORDERED: 0.9%NACL 1000ML 1,000 ML IV ONE (06:10)
[2021-05-20] MEDS ORDERED: BUPIVACAINE/PF 0.25% 30ML VIAL IJ ONE (09:08)
[2021-05-20] MEDS ORDERED: CEFAZOLIN SODIUM 1 GM VIAL ONE (09:08)
[2021-05-20] MEDS ORDERED: LIDOCAINE HCL 1% MDV 50ML VIAL ONE (09:08)
[2021-05-20] MEDS ORDERED: MEPERIDINE-PF 25 MG/ML SYG ONE ×3 (09:34→09:55)
[2021-05-20] MEDS ORDERED: MIDAZOLAM HCL 1 MG/ML 2ML VIAL ONE ×3 (09:34→09:55)
[2021-05-20] MEDS ORDERED: ACETAMINOPHEN 325 MG TAB PO PRN ×2 (11:00)
[2021-05-20] MEDS ORDERED: GLUCAGON 1MG KIT 1 MG ML IM PRN (11:00)
[2021-05-20] MEDS ORDERED: ONDANSETRON 4MG INJ IV PRN (11:00)
[2021-05-20] MEDS ORDERED: DEXTROSE 50%-WATER 50 ML DISP.SYRIN IV PRN (11:00)
[2021-05-20] MEDS ORDERED: INSULIN HUMULIN R 100 UNIT/ML 3ML SQ SCH (11:30)
[2021-05-20] MEDS ORDERED: CEFAZOLIN SODIUM 1 GM VIAL IVP SCH ×2 (13:30→15:30)
== END 2021-05-20 16:00 | disposition home or self-care (01) ==
LOC: DAH 05:39
PROVIDERS: ATTEND Internal Medicine Cardiovascular Disease
DX: I25.5 Ischemic cardiomyopathy (principal); Z20.822 Contact with and (suspected) exposure to COVID-19; I48.0 Paroxysmal atrial fibrillation; I25.10 Atherosclerotic heart disease of native coronary artery without angina pectoris; E11.9 Type 2 diabetes mellitus without complications; I11.0 Hypertensive heart disease with heart failure; I50.42 Chronic combined systolic (congestive) and diastolic (congestive) heart failure; Z98.890 Other specified postprocedural states; Z95.1 Presence of aortocoronary bypass graft; Z98.891 History of uterine scar from previous surgery; Z79.01 Long term (current) use of anticoagulants
CPT/HCPCS: 33249; 36415; 71045; 71046; 80048; 82948; 85025; 85610; 85730; 93005; 99156; 99157; A4606; C1722; C1895; J0690; J2175; J2250; J3490; J7030

== ENCOUNTER 2021-05-28 02:25 | Emergency (ER) | payer MEDICARE ==
[~2021-05-28] VITALS: Ht 152.4 cm; Wt 70.3 kg
[2021-05-28 03:00] VITALS: BP 136/72
[2021-05-28] MEDS ORDERED: HYDROCODONE/ACETAMINOPHEN 5/325 MG TAB PO ONE (03:00)
[2021-05-28 03:44] LABS: BASOPHILS % (AUTO) 0.1 % (0.0-5.0); HEMATOCRIT 37.6 % (36-48); LYMPHOCYTES % (AUTO) 7.8 % (21.0-51.0); MEAN CORPUSCULAR HEMOGLOBIN 26.6 pg (27.0-33.0); MEAN CORPUSCULAR HGB CONC 31.6 g/dL (32.0-36.0); MEAN CORPUSCULAR VOLUME 84.1 fL (79-99); NEUTROPHILS % (AUTO) 86.6 % (40.0-77.0); PLATELET COUNT (AUTO) 201 K/uL (130-400); RED BLOOD CELL COUNT(AUTO) 4.47 MIL/uL (4.00-5.50); RED CELL DISTRIBUTION WIDTH 14.7 % (11.0-15.5); WHITE BLOOD COUNT (AUTO) 14.2 K/uL (4.8-10.8)
[2021-05-28 03:53] LABS: CREATININE 1.6 mg/dL (0.5-1.5); POTASSIUM 5.3 mmol/L (3.5-5.1)
[2021-05-28 03:58] LABS: ALBUMIN 3.3 g/dL (3.5-5.0); BILIRUBIN,TOTAL 0.6 mg/dL (0.2-1.0); INR 1.2 (0.85-1.15); PROTHROMBIN TIME 12.9 SEC (9.6-11.6); TOTAL PROTEIN, SERUM 7.1 g/dL (6.0-8.3)
[2021-05-28 04:06] LABS: B-TYPE NATRIURETIC PEPTIDE 1910 pg/mL (0-100)
[2021-05-28 04:44] VITALS: BP 155/63
[2021-05-28] MEDS ORDERED: BUPIVACAINE/PF 0.5% 30ML VIAL ONE (04:47)
[2021-05-28] MEDS ORDERED: SOLU-MEDROL 40MG VIAL ONE (04:47)
== END 2021-05-28 05:55 | disposition home or self-care (01) ==
LOC: EDH 02:25
DX: M17.11 Unilateral primary osteoarthritis, right knee (principal); I50.22 Chronic systolic (congestive) heart failure; I25.10 Atherosclerotic heart disease of native coronary artery without angina pectoris; E78.00 Pure hypercholesterolemia, unspecified; E11.9 Type 2 diabetes mellitus without complications; Z79.01 Long term (current) use of anticoagulants; Z79.4 Long term (current) use of insulin; Z79.52 Long term (current) use of systemic steroids; Z79.899 Other long term (current) drug therapy; Z95.1 Presence of aortocoronary bypass graft
CPT/HCPCS: 20610; 36415; 73562; 80053; 83880; 84484; 85025; 85610; 99284; J2920; J3490